=== PATIENT | female | born 1930 | race Caucasian/White ===

== ENCOUNTER → 2016-12-27 | Outpatient (CLI) | payer MEDICARE, OTHER ==
--- NOTE | 2016-12-28 10:08 | RADIOLOGY REPORT (SQ) ---
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 RADIONUCLIDE AND DOSE: 9.5 mCi F18 FDG The route of agent administration: Intravenous FASTING BLOOD SUGAR: 95 mg/dl CONTRAST TYPE AND DOSE: No CT contrast given. TECHNIQUE: Blood glucose level was verified. Above dose of FDG was injected intravenously. 2-D seg mented attenuation correction images were obtained from the base of the skull to the midthighs. Nonc ontrast CT images were obtained for attenuation correction and fusion with emission images. CT image s were performed without oral or intravenous contrast and are not sensitive for parenchymal lesions. A series of overlapping emission PET images were obtained. Images reviewed and manipulated at indep [employer] work station by the radiologist. Images stored on PACS. LIMITATIONS: None. FINDINGS: HEAD AND NECK: Left submandibular mass measuring about 6 cm in maximum diameter and mean S UV 6.3. Increased uptake 8.5 mean SUV associated with a fracture of the body of the left mandible. CHEST: No areas of abnormal metabolic activity in the chest. ABDOMEN AND PELVIS: No areas of abnormal metabolic activity in the abdomen or pelvis. Expected physi ologic activity is present in the genitourinary system and bowel. PROXIMAL LOWER EXTREMITIES: No areas of abnormal metabolic activity in the soft tissues of the lower extremities. BONES: See above. ADDITIONAL CT FINDINGS: Cardiomegaly. 10 mm non hypermetabolic pulmonary nodule right lower lobe. OTHER: No other significant findings. IMPRESSION: Hypermetabolic left submandibular mass. Increased uptake associated with a fracture of the body of the left mandible. No evidence of distant metastasis. TECHNICAL DOCUMENTATION: JOB ID: [id number]- All Rights Reserved
== END ==
LOC: RAD 15:51
PROVIDERS: ATTEND Internal Medicine Hematology & Oncology
DX: C06.9 Malignant neoplasm of mouth, unspecified (principal)
CPT/HCPCS: 78815; A9552

== ENCOUNTER → 2017-03-10 | Outpatient (CLI) | payer MEDICARE, OTHER ==
[2017-03-10 11:31] LABS: ABSOLUTE BASOPHILS # (AUTO) 0.1 10^3/uL (0.0-0.2); ABSOLUTE MONOCYTES (AUTO) 0.7 10^3/uL (0.1-1.4); ABSOLUTE NEUT (AUTO) 8.6 10^3/uL (1.7-8.2); BASOPHILS % (AUTO) 0.5 % (0-2); EOSINOPHILS % (AUTO) 0.2 % (0-6); HEMATOCRIT 38.7 % (36.0-47.0); HEMOGLOBIN 12.5 g/dL (12.0-15.5); LYMPHOCYTES % (AUTO) 9.9 % (13-45); MEAN CORPUSCULAR HEMOGLOBIN 27.3 pg (27.0-33.4); MEAN CORPUSCULAR HGB CONC 32.5 g/dL (32.0-36.0); MEAN CORPUSCULAR VOLUME 84 fl (80-97); MONOCYTES % (AUTO) 6.7 % (3-13); PLATELET COUNT 413 10^3/uL (150-450); RED BLOOD COUNT 4.59 10^6/uL (3.72-5.28); RED CELL DISTRIBUTION WIDTH 15.2 % (11.5-14.0); SEGMENTED NEUTROPHILS % (AUTO) 82.7 % (42-78); TOTAL CELLS COUNTED % (AUTO) 100 %; WHITE BLOOD COUNT 10.4 10^3/uL (4.0-10.5)
== END ==
LOC: OD 10:52
PROVIDERS: ATTEND Radiology Radiation Oncology
DX: C06.0 Malignant neoplasm of cheek mucosa (principal); C77.0 Secondary and unspecified malignant neoplasm of lymph nodes of head, face and neck
CPT/HCPCS: 36415; 85025

== ENCOUNTER 2017-03-17 09:09 | Day surgery (SDC) | payer MEDICARE, OTHER ==
[2017-03-12 09:10] LABS: HEMATOCRIT 40.9 % (36.0-47.0); HEMOGLOBIN 13.3 g/dL (12.0-15.5); MEAN CORPUSCULAR HEMOGLOBIN 27.4 pg (27.0-33.4); MEAN CORPUSCULAR HGB CONC 32.5 g/dL (32.0-36.0); MEAN CORPUSCULAR VOLUME 84 fl (80-97); PLATELET COUNT 414 10^3/uL (150-450); RED BLOOD COUNT 4.85 10^6/uL (3.72-5.28); RED CELL DISTRIBUTION WIDTH 15.2 % (11.5-14.0); WHITE BLOOD COUNT 10.8 10^3/uL (4.0-10.5)
--- NOTE | 2017-03-12 12:46 | EKG REPORT ---
SEVERITY:- ABNORMAL ECG - ATRIAL FIBRILLATION, V-RATE 53-65 VENTRICULAR PREMATURE COMPLEX REPOL ABNRM SUGGESTS ISCHEMIA, ANT-LAT LEADS : Confirmed by: Indigo Pulliam MD 12-Mar-2017 12:45:50
[~2017-03-17 09:09] MED LIST: ACETAMINOPHEN 325 MG TABLET PO PRN; CEFAZOLIN 1 GM/D5W RTU 1 GM/50 ML RTUPB IV PRN; LACTATED RINGERS 1000 ML IV PRN; LIDOCAINE 0.5% INJ-PF (5 MG/ML) 50 ML SDV SUBCUT PRN
[2017-03-17 09:52] LABS: INTERNATIONAL RATION (INR) 1.08; PROTHROMBIN TIME 14.8 SEC (11.4-15.4)
[2017-03-17 09:53] LABS: PARTIAL THROMBOPLASTIN TIME 30.6 SEC (23.5-35.8)
[2017-03-17 10:55] LABS: HEMATOCRIT 39.1 % (36.0-47.0); HEMOGLOBIN 12.7 g/dL (12.0-15.5); MEAN CORPUSCULAR HEMOGLOBIN 27.4 pg (27.0-33.4); MEAN CORPUSCULAR HGB CONC 32.5 g/dL (32.0-36.0); MEAN CORPUSCULAR VOLUME 84 fl (80-97); PLATELET COUNT 319 10^3/uL (150-450); RED BLOOD COUNT 4.64 10^6/uL (3.72-5.28); RED CELL DISTRIBUTION WIDTH 15.5 % (11.5-14.0); WHITE BLOOD COUNT 10.1 10^3/uL (4.0-10.5)
[2017-03-17] MEDS ORDERED: PROPOFOL INJ 200 MG/20 ML VIAL IV ONE (10:58)
[2017-03-17] MEDS ORDERED: MIDAZOLAM 2 MG/2 ML INJ ONE (10:59)
[2017-03-17] MEDS ORDERED: MEPERIDINE HCL/PF INJ 25 MG/1 ML DISP.SYRIN IV PRN (11:10)
[2017-03-17] MEDS ORDERED: PROMETHAZINE HCL INJ 25 MG/1 ML VIAL IV PRN ×2 (11:10)
[2017-03-17] MEDS ORDERED: MORPHINE SULFATE 10 MG/ML INJ IV PRN (11:10)
[2017-03-17] MEDS ORDERED: OXYCODONE-ACETAMINOPHEN 5-325 MG TABLET PO PRN ×2 (11:10)
[2017-03-17] MEDS ORDERED: FENTANYL CITRATE INJ/PF 100 MCG/2 ML AMPUL IV PRN ×3 (11:10)
[2017-03-17] MEDS ORDERED: DIPHENHYDRAMINE HCL 50 MG/ML VIAL IV PRN (11:10)
--- NOTE | 2017-03-17 11:36 | PDOC DISCHARGE SUMMARY ---
Discharge Summary (SDC) - Discharge Final Diagnosis: Mouth cancer Date of Surgery: 03/17/17 Discharge Date: 03/17/17 Condition: Stable Treatment or Instructions: Consult home health for maintenance of PEG tube. You may clean around the area but make sure it is completely dry. Follow up at [facility] in 10-14 days for evaluation. Call clinic sooner with questions or concerns. [facility]: [phone] Prescriptions: Ketorolac Tromethamine [Toradol 10 mg Tablet] 10 mg PO Q6HP PRN #15 tablet PRN Reason: Referrals: [facility] [Outside] DEBBY BROWN MD [Primary Care Provider] - Discharge Diet: Tube Feeding (Comments) Discharge Activity: Activity As Tolerated Report the Following to Your Physician Immediately: Nausea, Vomiting, Fever over 101 Degrees, Drainage-Foul Smelling
--- NOTE | 2017-03-17 11:37 | Operative Report ---
Operative Report DATE OF SURGERY: 03/17/17 PREOPERATIVE DIAGNOSIS: Base of tongue carcinoma POSTOPERATIVE DIAGNOSIS: Same; mild diffuse gastritis OPERATION: 1. Esophagogastroduodenoscopy. 2. Placement of 24 Kosovan Endovie PEG tube SURGEON: ZAIDA ROBERTS 1ST ELEMENTARY ASSISTANT PRINCIPAL: FRED BO ANESTHESIA: LMAC TISSUE REMOVED OR ALTERED: None COMPLICATIONS: none ESTIMATED BLOOD LOSS: none INTRAOPERATIVE FINDINGS: See below PROCEDURE: She was taken from the preop holding area to the main operating room where LMAC anesthesia was induced. She is placed in the semirecumbent position, partial Trendelenburg. Mouthpiece inserted and appropriate level of intra-venous anesthesia induced. Surgical plan surgical timeout were conducted. The flexible adult upper endoscope was advanced through the oropharynx, passed the base of tongue malignancy on the patient's left hypopharynx, and into the esophagus without difficulty. The scope was advanced through the esophagus through the stomach into the duodenum. The stomach was significant for diffuse mild gastritis. No gastric tumor identified. No evidence of gastric outlet obstruction identified. The scope was brought back to the pylorus with the tip in the body of the stomach. Insufflation was achieved. A suitable site for placement of the PEG was chosen left of midline, based on excellent deflection of the intra- abdominal wall, anterior stomach wall, transillumination of the scope. The skin was prepped and draped with Betadine and anesthetized 1% plain lidocaine. An incision was made with a #11 blade in the skin, and the Jelco needle with threaded into the lumen of the stomach. We removed the needle, and threaded a wire through the Jelco. The wire was snared with the endoscope, and the wire scope was brought back to the patient's oral pharynx. We then threaded over the wire a 24 Kosovan pullout tube. The wire and to bend were brought up through the anterior abdominal wall such that the bolster was setting against the anterior stomach wall. We repeated the upper endoscopy and confirmed excellent position of the PEG without bleeding. Appropriate bolsters with the appropriate degree of tension, dressings applied. Tolerated procedure well and taken to recovery in stable condition. The physician assistant professor of nursing, Ms. Wong, provided assistance during this case by: Assisting and port insertion, retracting tissue, instillation of local anesthesia and closure of skin incisions.
[2017-03-17 18:38] VITALS: BP 118/52
== END 2017-03-17 13:05 | disposition home or self-care (01) ==
LOC: OROUT 09:09
PROVIDERS: ATTEND Surgery
PROC: 0DH63UZ Insertion of Feeding Device into Stomach, Percutaneous Approach (ICD-10-PCS; principal; 2017-03-17 11:15)
DX: C06.9 Malignant neoplasm of mouth, unspecified (principal); I48.91 Unspecified atrial fibrillation; Z79.01 Long term (current) use of anticoagulants; Z79.899 Other long term (current) drug therapy; K44.9 Diaphragmatic hernia without obstruction or gangrene
CPT/HCPCS: 43246; 93005; 36415 ×2; 85027 ×2; 85610; 85730; 93010; J2250; J0690; J2704; 731

== ENCOUNTER 2018-03-24 13:00 | Outpatient (CLI) | payer MEDICARE, OTHER ==
[2018-03-24] MEDS ORDERED: NORMAL SALINE 250 ML IV PRN (13:11)
[2018-03-24] MEDS: MAGNESIUM SULFATE 1 GM/D5W 100 ML IV SCH ×2 (13:30→14:30)
[2018-03-24 13:38] VITALS: BP 109/74
== END 2018-03-24 15:37 | disposition home or self-care (01) ==
LOC: II 13:00 → 5TH 13:06 → II 15:37
PROVIDERS: ATTEND Internal Medicine Hematology & Oncology
PROC: 3E033GC Introduction of Other Therapeutic Substance into Peripheral Vein, Percutaneous Approach (ICD-10-PCS; principal; 2018-03-24)
DX: E83.42 Hypomagnesemia (principal)
CPT/HCPCS: 96367; J3475; 96365; 96366

== ENCOUNTER → 2018-06-22 | Outpatient (CLI) | payer MEDICARE, OTHER ==
--- NOTE | 2018-06-22 11:26 | RADIOLOGY REPORT (SQ) ---
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 Reconstructed coronal and sagittal MPR images reviewed. All images stored on PACS. All CT scanners at this facility use dose modulation, iterative reconstruction, and/or weight based d osing when appropriate to reduce radiation dose to as low as reasonably achievable (ALARA). [facility]: Dose Right [facility]: CareDose [facility]: Dose Right [facility]: Teradose 4D [facility]: [employer] CONTRAST TYPE AND DOSE: 80 mL of IV Omnipaque 350- low osmolar. RENAL FUNCTION: Creatinine 0.6 RADIATION DOSE: 9.2 mGy . LIMITATIONS: None. FINDINGS: A 2.3 x 2 cm mass is present in the left submandibular triangle appearance is well-circums cribed, and appears extrinsic to the left submandibular gland. This lesion was 4.7 x 4.6 cm in size on PET-CT 12/27/2016. In the left anterior lower back, a lobular mass with indistinct margins is present, measuring 4.2 cm craniocaudad by 4.3 cm transverse by 2.8 cm AP. Indistinct margins with the adjacent thyroid. This could represent primary thyroid tumor rather than recurrent floor of mouth malignancy. SKULL BASE: Post bilateral cataract surgery. Ectasia of the basilar artery, benign. MAJOR SALIVARY GLANDS: No solid or cystic masses. No inflammatory changes. LYMPHADENOPATHY: Aside from the lesions above, no bulky cervical adenopathy is present. MUCOSAL MASSES OR ASYMMETRY: No mucosal masses or asymmetry. LARYNX/CORDS: No abnormal findings. VASCULAR STRUCTURES: The major vessels are patent. LUNG APICES: Clear. BONES: Intact. THYROID: As above. PARANASAL SINUSES: Clear. OTHER: No other significant finding. IMPRESSION: Recurrent/residual floor of mouth mass 2.3 x 2 cm on the current study (was 4.7 x 4.6 cm on 12/27/2016 PET-CT) Irregular ill-defined soft tissue mass left lower neck abutting the lateral aspect left lobe thyroid. This may represent a primary thyroid tumor rather than recurrent floor of mouth tumor. This findin g measures 4.2 x 4.3 x 2.8 cm. TECHNICAL DOCUMENTATION: JOB ID: [id number] Quality ID # [id number]: Final reports with documentation of one or more dose reduction techniques (e.g., Au tomated exposure control, adjustment of the mA and/or kV according to patient size, use of iterative reconstruction technique) 2010 [employer]- All Rights Reserved Reading location - IP/workstation name: [email or web address]
--- NOTE | 2018-06-22 16:21 | RADIOLOGY REPORT (SQ) ---
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 Images reviewed with lung, soft tissue and bone windows. Reconstructed coronal and sagittal MPR and MIP images reviewed. All images stored on PACS. All CT scanners at this facility use dose modulation, iterative reconstruction, and/or weight based d osing when appropriate to reduce radiation dose to as low as reasonably achievable (ALARA). [facility]: Dose Right [facility]: CareDose [facility]: Dose Right [facility]: Teradose 4D [facility]: [employer] CONTRAST TYPE AND DOSE: contrast/concentration: Isovue 350.00 mg/ml; Total Contrast Delivered: 80.0 ml; Total Saline Delivered: 55.0 ml RENAL FUNCTION: Creatinine 0.6 RADIATION DOSE: CT Rad equipment meets quality standard of care and radiation dose reduction techniq ues were employed. CTDIvol: 6.2 - 9.2 mGy. DLP: 599 mGy-cm. . LIMITATIONS: None. FINDINGS: LUNGS AND PLEURA: Small right-sided pleural effusion. No focal airspace disease. No pneu mothorax. Minimal linear left basilar scarring. HILAR AND MEDIASTINAL STRUCTURES: Supraclavicular mass/adenopathy. Please see same-day CT of the [facility] for detailed description above the clavicles. No mediastinal, hilar or axillary adenopathy. HEART AND VASCULAR STRUCTURES: Cardiomegaly with markedly enlarged right atrium and right ventricle. Contrast reflux into the hepatic veins which can be seen with right heart dysfunction. Dilated main in bilateral pulmonary artery suggestive pulmonary artery hypertension. No significant pericardial effusion. Scattered coronary atherosclerosis. HARDWARE: None in the chest. UPPER ABDOMEN: No significant findings. Limited exam. THYROID AND OTHER SOFT TISSUES: Please see same-day neck CT for findings above the clavicles. BONES: Osteopenia. No acute findings. No suspicious osseous lesions. Dysmorphic ribs bilaterally. OTHER: No other significant finding. IMPRESSION: 1. Partially evaluated left supraclavicular / thyroid mass. Please see same-day neck C T for findings above the clavicles. 2. No other evidence of intrathoracic metastatic disease. 3. Cardiomegaly with markedly enlarged right heart and evidence of right heart dysfunction. Small r ight effusion. TECHNICAL DOCUMENTATION: JOB ID: [id number] Quality ID # [id number]: Final reports with documentation of one or more dose reduction techniques (e.g., Au tomated exposure control, adjustment of the mA and/or kV according to patient size, use of iterative reconstruction technique) 2010 [employer]- All Rights Reserved Reading location - IP/workstation name: [email or web address]
== END ==
LOC: RAD 08:27
PROVIDERS: ATTEND Internal Medicine
DX: C06.9 Malignant neoplasm of mouth, unspecified (principal)
CPT/HCPCS: 70491; 71260; 82565

== ENCOUNTER 2018-07-05 10:35 | Emergency (ER) | payer MEDICARE, OTHER ==
--- NOTE | 2018-07-05 10:57 | RADIOLOGY REPORT (SQ) ---
EXAM DESCRIPTION: CHEST SINGLE VIEW COMPLETED DATE/TIME: 07/05/2018 10:46 am REASON FOR STUDY: left-sided weakness COMPARISON: None. NUMBER OF VIEWS: One view. TECHNIQUE: Single frontal radiographic image of the chest acquired. LIMITATIONS: None. FINDINGS: LUNGS AND PLEURA: The lung godoy are hyperexpanded. No consolidations. MEDIASTINUM AND HILAR STRUCTURES: Normal in appearance. HEART AND VASCULAR STRUCTURES: Heart is enlarged. No failure. BONES: No acute findings. OTHER: No other significant finding. IMPRESSION: COPD. Cardiomegaly. No acute findings in the chest. TECHNICAL DOCUMENTATION: JOB ID: [id number] [employer]- All Rights Reserved Reading location - IP/workstation name: [email or web address]
--- NOTE | 2018-07-05 11:01 | ER Document Report ---
ED General - General Chief Complaint: S/S of Possible Stroke Stated Complaint: POSSIBLE STROKE Time Seen by Provider: 07/05/18 10:56 Primary Care Provider: GITA PAYAN MD [ACTIVE STAFF] - Follow up as needed Information source: Patient Notes: Patient is an 87-year-old female with past medical history of a neck cancerous mass followed by Dr. Payan with the hematology/oncology team who is here for radiographically guided biopsy of the left neck mass. Patient did not receive anesthesia but when she was done receiving the biopsy, she could not move her left arm. Patient denies any headache, slurred speech, difficulty speaking or understanding, weakness or numbness to any other locations. Patient and family deny any other past medical history and is supposedly on no meds other than chemotherapy medications. Patient does state that she felt acute pain to her left shoulder when the needle was inserted into the left neck mass. TRAVEL OUTSIDE OF THE [place] IN LAST 30 DAYS: No - HPI Onset: Just prior to arrival Onset/Duration: Sudden - Related Data Allergies/Adverse Reactions: No Known Allergies Allergy (Unverified 03/12/17 09:27) Past Medical History - Social History Smoking Status: Unknown if Ever Smoked Family History: Reviewed & Not Pertinent Review of Systems - Review of Systems Constitutional: denies: Fever EENT: denies: Eye discharge, Nose discharge Cardiovascular: denies: Chest pain Respiratory: denies: Short of breath Gastrointestinal: denies: Vomiting Genitourinary: denies: Dysuria Musculoskeletal: denies: Leg swelling Skin: Other - no hives. denies: Rash -: Yes All other systems reviewed and negative Physical Exam - Vital signs Vitals: Pulse Ox 100 07/05/18 11:01 Notes: Reviewed vital signs and nursing note as charted by RN. CONSTITUTIONAL: Alert and oriented and responds appropriately to questions. Well-appearing; well-nourished HEAD: Normocephalic; atraumatic EYES: PERRL; Conjunctivae clear, sclerae non-icteric ENT: Normal nose; no rhinorrhea; moist mucous membranes; pharynx without lesions noted NECK: Supple without meningismus; bandage to the left neck; no expanding masses or bruits present; no cervical lymphadenopathy, no masses CARD: Regular rate and rhythm; no murmurs; symmetric distal pulses RESP: Normal chest excursion without splinting or tachypnea; breath sounds clear and equal bilaterally; no wheezes, no rhonchi, no rales ABD/GI: Normal bowel sounds; non-distended; soft, non-tender; no palpable organomegaly or masses BACK: The back appears normal and is non-tender to palpation EXT: Normal passive ROM in all joints; non-tender to palpation; no edema SKIN: No acute lesions noted NEURO: CN 2-12 intact; 3 out of 5 strength of the left upper arm. However the patient has 5 out of 5 left tool hardener strength. She is also able to flex her bicep. She is just not able to extend at the shoulder region. 5 out of 5 strength of all of the extremities. Strong distal pulses to all 4 extremities PSYCH: The patient's mood and manner are appropriate. Grooming and personal hygiene are appropriate. Course - Re-evaluation Re-evalutation: 07/05/18 10:50 Given the above history and physical examination, code stroke was activated. Patient was taken directly to the CT scanner. Radiologist called me back and states he sees no acute process. NIH score is a 3. Patient has isolated left arm weakness only at the shoulder joint. 07/05/18 11:01 Patient had stated no past medical history. It appears that the patient is on metoprolol as well as Eliquis. EKG shows a heart of 84, atrial fibrillation, no obvious ST elevation. Slight ST depressions with inverted T waves in leads V5 and V6 07/05/18 11:02 We have found the patient's old EKG from March 12, 2017. It appears that the patient had atrial fibrillation at that time as well. Given the history, physical, acute pain to the left shoulder with insertion of the needle into the left neck, with no other focal deficits, already on Eliquis, I do not believe the patient is a TPA candidate. 07/05/18 11:12 I have spoken to the radiologist. He states that the patient had to be in an awkward position for greater than 15 minutes with her head completely rotated to the right. He agrees that this does not sound extremely strokelike. I will obtain an MRI of the brain. 07/05/18 11:42 Patient now has absolutely no weakness or pain to the left shoulder or arm. Patient is wanting to go home without the MRI. I have explained to the patient as well as the family in the room that I cannot completely rule out a stroke to the brain without performing the MRI. Chest x-ray shows normal heart, normal mediastinum, no fractures, normal lung godoy, no pneumothorax. 07/05/18 13:32 Patient has accepted having the MRI performed. Labs as recorded. Patient is currently in MRI. 07/05/18 14:53 MRI as recorded. Patient still has no focal neurological deficits. 5 out of 5 strength of the left arm. Patient will be discharged home with strict return precautions and follow-up with her oncologist. - Vital Signs Vital signs: Temp Pulse Resp BP Pulse Ox 100 07/05/18 11:01 - Laboratory Result Diagrams: 07/05/18 10:57 07/05/18 10:57 Laboratory results interpreted by me: 07/05/18 07/05/18 10:57 10:57 Hgb 11.0 L Hct 34.8 L MCV 79 L MCH 24.8 L MCHC 31.6 L RDW 17.1 H Carbon Dioxide 20 L Calcium 10.4 H Discharge - Discharge Clinical Impression: Left arm weakness Condition: Good Disposition: HOME, SELF-CARE Additional Instructions: Come back immediately for any repeat weakness, vomiting, fevers, headache or neck pain, neck swelling, or any other acute problems. Please follow-up with the lockstitch back maker/oncologist as we have discussed. Referrals: GITA PAYAN MD [ACTIVE STAFF] - Follow up as needed
--- NOTE | 2018-07-05 11:03 | RADIOLOGY REPORT (SQ) ---
EXAM DESCRIPTION: CT HEAD WITHOUT COMPLETED DATE/TIME: 07/05/2018 10:48 am REASON FOR STUDY: left-sided weakness COMPARISON: None. TECHNIQUE: Axial images acquired through the brain without intravenous contrast. Images reviewed wi th bone, brain and subdural windows. Additional sagittal and coronal reconstructions were generated. Images stored on PACS. All CT scanners at this facility use dose modulation, iterative reconstruction, and/or weight based d osing when appropriate to reduce radiation dose to as low as reasonably achievable (ALARA). [facility]: Dose Right [facility]: CareDose [facility]: Dose Right [facility]: Teradose 4D [facility]: [employer] RADIATION DOSE: CT Rad equipment meets quality standard of care and radiation dose reduction techniq ues were employed. CTDIvol: 53.2 mGy. DLP: 964 mGy-cm. mGy. LIMITATIONS: None. FINDINGS: VENTRICLES: Normal size and contour. CEREBRUM: Mild cortical atrophy. No masses. No hemorrhage. No midline shift. No evidence for acut e infarction. Normal soares/white matter differentiation. No areas of low density in the white matter. CEREBELLUM: No masses. No hemorrhage. No alteration of density. No evidence for acute infarction. EXTRAAXIAL SPACES: No fluid collections. No masses. ORBITS AND GLOBE: No intra- or extraconal masses. Normal contour of globe without masses. CALVARIUM: No fracture. PARANASAL SINUSES: An air-fluid level is present in each maxillary sinus. SOFT TISSUES: No mass or hematoma. OTHER: No other significant finding. IMPRESSION: Involutional changes with no acute intracranial imaging findings. Maxillary sinus disea se. EVIDENCE OF ACUTE STROKE: NO. COMMENT: Pertinent positive or negative findings of the imaging study reported as a CRITICAL EXAM pretty MARIN MD at10:57 on 07/05/2018. Category of Critical Exam: Stroke alert. Quality ID # 436: Final reports with documentation of one or more dose reduction techniques (e.g., Au tomated exposure control, adjustment of the mA and/or kV according to patient size, use of iterative reconstruction technique) TECHNICAL DOCUMENTATION: JOB ID: [id number] [employer]- All Rights Reserved Reading location - IP/workstation name: [email or web address]
[2018-07-05 11:22] LABS: ABSOLUTE BASOPHILS # (AUTO) 0.1 10^3/uL (0.0-0.2); ABSOLUTE LYMPHOCYTES (AUTO) 0.9 10^3/uL (0.5-4.7); ABSOLUTE MONOCYTES (AUTO) 0.3 10^3/uL (0.1-1.4); ABSOLUTE NEUT (AUTO) 3.1 10^3/uL (1.7-8.2); BASOPHILS % (AUTO) 1.4 % (0-2); EOSINOPHILS % (AUTO) 0.7 % (0-6); HEMATOCRIT 34.8 % (36.0-47.0); LYMPHOCYTES % (AUTO) 20.3 % (13-45); MEAN CORPUSCULAR HEMOGLOBIN 24.8 pg (27.0-33.4); MEAN CORPUSCULAR HGB CONC 31.6 g/dL (32.0-36.0); MEAN CORPUSCULAR VOLUME 79 fl (80-97); MONOCYTES % (AUTO) 7.4 % (3-13); PLATELET COUNT 242 10^3/uL (150-450); RED BLOOD COUNT 4.42 10^6/uL (3.72-5.28); RED CELL DISTRIBUTION WIDTH 17.1 % (11.5-14.0); SEGMENTED NEUTROPHILS % (AUTO) 70.2 % (42-78); TOTAL CELLS COUNTED % (AUTO) 100 %; WHITE BLOOD COUNT 4.4 10^3/uL (4.0-10.5)
[2018-07-05 11:24] LABS: INTERNATIONAL RATION (INR) 1.02
[2018-07-05 11:25] LABS: PARTIAL THROMBOPLASTIN TIME 30.6 SEC (23.5-35.8)
[2018-07-05 11:27] LABS: PROTHROMBIN TIME 13.9 SEC (11.4-15.4)
[2018-07-05 11:58] LABS: CREATINE KINASE MB 2.47 ng/mL (<4.55)
[2018-07-05 12:20] LABS: TROPONIN I < 0.012 ng/mL
[2018-07-05 12:44] LABS: ALANINE AMINOTRANSFERASE 29 U/L (9-52); ALBUMIN 4.3 g/dL (3.5-5.0); ALKALINE PHOSPHATASE 97 U/L (38-126); ANION GAP 14 (5-19); ASPARTATE AMINO TRANSFERASE 29 U/L (14-36); BILIRUBIN,DIRECT 0.4 mg/dL (0.0-0.4); BILIRUBIN,TOTAL 0.7 mg/dL (0.2-1.3); BLOOD UREA NITROGEN 14 mg/dL (7-20); CALCIUM 10.4 mg/dL (8.4-10.2); CARBON DIOXIDE 20 mmol/L (22-30); CHLORIDE 107 mmol/L (98-107); CREATINE KINASE 36 U/L (30-135); GLUCOSE 103 mg/dL (75-110); POTASSIUM 4.6 mmol/L (3.6-5.0); SODIUM 141.2 mmol/L (137-145); TOTAL PROTEIN 7.3 g/dL (6.3-8.2)
[2018-07-05] MEDS ORDERED: LORAZEPAM INJ 2 MG/1 ML VIAL IV ONE (12:45)
--- NOTE | 2018-07-05 14:51 | RADIOLOGY REPORT (SQ) ---
EXAM DESCRIPTION: MRI HEAD WITHOUT COMPLETED DATE/TIME: 07/05/2018 2:05 pm REASON FOR STUDY: 3; left arm weakness COMPARISON: None. TECHNIQUE: Multiplanar imaging includes non-contrasted T1, T2, FLAIR, and diffusion with ADC map seq uences. Images stored on PACS. LIMITATIONS: None. FINDINGS: ANATOMY: No anomalies. Normal vascular flow voids. Pituitary fossa normal. CSF SPACES: Normal in size and contour. No hemorrhage. CEREBRUM: Mild cortical atrophy. Normal white matter signal on FLAIR imaging. No evidence of hemorrh age, mass, or extraaxial fluid collection. POSTERIOR FOSSA: No signal alteration. No hemorrhage. No edema, masses or mass effect. Internal josefina tory canals, cerebello-pontine angles, mastoids normal. DIFFUSION IMAGING: Negative for acute or sub-acute infarction. ORBITS: No masses. Globes normal. PARANASAL SINUSES: There are air-fluid levels in both maxillary sinuses. OTHER: No other significant finding. IMPRESSION: Mild involutional changes. Maxillary sinus disease. No acute intracranial imaging find ings. EVIDENCE OF ACUTE STROKE: NO. TECHNICAL DOCUMENTATION: JOB ID: [id number] [employer]- All Rights Reserved Reading location - IP/workstation name: [email or web address]
[2018-07-05 15:39] VITALS: BP 171/82
--- NOTE | 2018-07-06 10:16 | EKG REPORT ---
SEVERITY:- ABNORMAL ECG - ATRIAL FIBRILLATION, V-RATE 69-103 LVH WITH SECONDARY REPOLARIZATION ABNORMALITY ANTERIOR Q WAVES, POSSIBLY DUE TO LVH ST DEPRESSION, CONSIDER ISCHEMIA, ANT-LAT LDS : Confirmed by: Benjamin Garcia 06-Jul-2018 10:15:42
== END 2018-07-05 14:20 | disposition home or self-care (01) ==
LOC: ER 10:35
DX: R53.1 Weakness (principal); M25.512 Pain in left shoulder; R22.1 Localized swelling, mass and lump, neck
CPT/HCPCS: 93005; 99284; 96374; 36415; 82553; 82962; 82550; 85025; 85610; 85730; 80053; 84484; 70551; 71045; 70450; 93010; J2060

== ENCOUNTER → 2018-07-05 | Day surgery (SDC) | payer MEDICARE, OTHER ==
[~2018-07-05] MED LIST changes: -ACETAMINOPHEN 325 MG TABLET PO PRN; -CEFAZOLIN 1 GM/D5W RTU 1 GM/50 ML RTUPB IV PRN; -LACTATED RINGERS 1000 ML IV PRN; -LIDOCAINE 0.5% INJ-PF (5 MG/ML) 50 ML SDV SUBCUT PRN; +LIDOCAINE 1% INJ-PF (10 MG/ML) 30 ML SDV ONE
--- NOTE | 2018-07-05 12:01 | RADIOLOGY REPORT (SQ) ---
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 TECHNIQUE: The procedure was discussed with the patient and written informed consent obtained. A ti meout was performed to confirm the procedure and patient's identity. The skin of the neck was preppe d and draped in sterile fashion and 1% lidocaine administered for local anesthesia. Under sonographi c guidance, soft tissue core biopsy was performed of the mass in the left side of the neck. Four separate core biopsies were performed. Hemostasis was obtained with direct manual compression. There were no immediate complications. LIMITATIONS: None. FINDINGS: PATHOLOGY: Pending. IMPRESSION: ULTRASOUND-GUIDED BIOPSY PERFORMED OF A MASS IN THE LEFT SIDE OF THE NECK. PATHOLOGY PE NDING AT THE TIME OF DICTATION. COMMENT: Patient medication list reviewed: Yes- Quality ID# [id number]:Eligible professional attests to doc umenting in the medical record they obtained, updated, or reviewed the patient's current medications. TECHNICAL DOCUMENTATION: JOB ID: [id number] [employer]- All Rights Reserved Reading location - IP/workstation name: [email or web address]
== END ==
LOC: RAD 08:51
PROVIDERS: ATTEND Internal Medicine Hematology & Oncology
DX: E07.9 Disorder of thyroid, unspecified (principal); C06.9 Malignant neoplasm of mouth, unspecified
CPT/HCPCS: 88305 ×2; 21550; J3490

== ENCOUNTER → 2019-04-24 | Outpatient (CLI) | payer MEDICARE, OTHER ==
--- NOTE | 2019-04-25 12:43 | RADIOLOGY REPORT (SQ) ---
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 Reconstructed coronal and sagittal MPR images reviewed. All images stored on PACS. All CT scanners at this facility use dose modulation, iterative reconstruction, and/or weight based d osing when appropriate to reduce radiation dose to as low as reasonably achievable (ALARA). [facility]: Dose Right [facility]: CareDose [facility]: Dose Right [facility]: Teradose 4D [facility]: [employer] CONTRAST TYPE AND DOSE: 80 mL of IV Omnipaque 350- low osmolar. RENAL FUNCTION: Creatinine 0.5 RADIATION DOSE: 8 mGy . LIMITATIONS: None FINDINGS: No dominant mass is identified in the left retromolar trigone region on axial images 19-24 . Along the left submandibular triangle, a 2.3 x 1.7 cm nodule is present likely metastatic lymph node (was 2.3 x 1.9 cm on 06/22/2018). This is immediately ventral to the submandibular gland. Previously biopsied left infra hyoid level 3 metastatic lymph node is present, 5.3 x 3.7 cm today (wa s 1.3 x 2.8 cm 06/22/2018). Left supraclavicular 1.4 x 1 cm lymph node is unchanged. SKULL BASE: Intact. MAJOR SALIVARY GLANDS: No solid or cystic masses. No inflammatory changes. LYMPHADENOPATHY: As above MUCOSAL MASSES OR ASYMMETRY: No mucosal masses or asymmetry. LARYNX/CORDS: No abnormal findings. VASCULAR STRUCTURES: The major vessels are patent. LUNG APICES: Clear. BONES: Diffuse degenerative disc changes with moderate bilateral C5-6 foraminal narrowing THYROID: Normal size. No masses. PARANASAL SINUSES: Clear. OTHER: No other significant finding. 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 TECHNICAL DOCUMENTATION: JOB ID: [id number] Quality ID # [id number]: Final reports with documentation of one or more dose reduction techniques (e.g., Au tomated exposure control, adjustment of the mA and/or kV according to patient size, use of iterative reconstruction technique) 2010 [employer]- All Rights Reserved Reading location - IP/workstation name: [email or web address]
--- NOTE | 2019-04-26 11:01 | RADIOLOGY REPORT (SQ) ---
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 CT chest dated 06/22/2018 TECHNIQUE: CT scan of the chest performed using helical scanning technique with dynamic intravenous contrast injection. Images reviewed with lung, soft tissue and bone windows. Reconstructed coronal and sagittal MPR and MIP images reviewed. All images stored on PACS. All CT scanners at this facility use dose modulation, iterative reconstruction, and/or weight based d osing when appropriate to reduce radiation dose to as low as reasonably achievable (ALARA). [facility]: Dose Right [facility]: CareDose [facility]: Dose Right [facility]: Teradose 4D [facility]: [employer] CONTRAST TYPE AND DOSE: contrast/concentration: Isovue 350.00 mg/ml; Total Contrast Delivered: 80.0 ml; Total Saline Delivered: 55.0 ml RENAL FUNCTION: BUN 13, creatinine 0.5 RADIATION DOSE: . LIMITATIONS: None. FINDINGS: LUNGS AND PLEURA: There is an enlarging right pleural effusion. There is a focal soft tis shante mass now present in the right base anteriorly adjacent to the right heart border. This measures approximately 2.7 x 2.4 cm. This could represent consolidation. Neoplasm cannot be excluded. There is atelectasis in both lung bases. HILAR AND MEDIASTINAL STRUCTURES: No identified masses or abnormal nodes. HEART AND VASCULAR STRUCTURES: No aneurysm or dissection. No central pulmonary emboli. No pericardi al effusion. HARDWARE: Yszavh-Q-Qetw is in place. UPPER ABDOMEN: Suspect periaortic adenopathy. THYROID AND OTHER SOFT TISSUES: Large necrotic lymph nodes in the left lower neck is again noted. Pl ease refer to CT of the neck for further discussion. This measures approximately 5 cm in greatest di ameter. BONES: Slight wedging of T12. This is stable from June 2018. OTHER: No other significant finding. IMPRESSION: 1. Increasing right pleural effusion. There is a 2.7 x 2.4 cm soft tissue mass in the r ight base anteriorly. This could represent focal consolidation although neoplasm cannot be excluded. 2. Suspect periaortic adenopathy. Correlation with CT abdomen pelvis is recommended. 3. Large lower left neck necrotic lymph node as described. TECHNICAL DOCUMENTATION: JOB ID: [id number] Quality ID # 436: Final reports with documentation of one or more dose reduction techniques (e.g., Au tomated exposure control, adjustment of the mA and/or kV according to patient size, use of iterative reconstruction technique) 2010 [employer]- All Rights Reserved Reading location - IP/workstation name: [email or web address] MORE[facility] [email or web address]
== END ==
LOC: RAD 14:30
PROVIDERS: ATTEND Internal Medicine Hematology & Oncology
DX: C06.9 Malignant neoplasm of mouth, unspecified (principal); J90 Pleural effusion, not elsewhere classified; R59.0 Localized enlarged lymph nodes; M50.322 Other cervical disc degeneration at C5-C6 level
CPT/HCPCS: 70491; 71260

== ENCOUNTER → 2019-07-03 | Outpatient (CLI) | payer MEDICARE, OTHER ==
--- NOTE | 2019-07-03 14:32 | RADIOLOGY REPORT (SQ) ---
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 RADIATION DOSE: NA LIMITATIONS: none FINDINGS: LUNGS AND PLEURA: Persistent right pleural effusion with underlying mass and/or airspace d isease. Similar findings were noted on recent CT. There is hyperexpansion. No pneumothorax. Proba ble small left effusion as well. MEDIASTINUM AND HILAR STRUCTURES: No masses or contour abnormalities. HEART AND VASCULAR STRUCTURES: Heart is enlarged. No failure. BONES: No acute findings. HARDWARE: Saazin-O-Xjbm is in place. OTHER: No other significant finding. IMPRESSION: Persistent right pleural effusion with underlying mass and/or pneumonia. There is a sma ll left effusion. Based on prior CT there has been progression in disease. TECHNICAL DOCUMENTATION: JOB ID: [id number] 2010 [employer]- All Rights Reserved Reading location - IP/workstation name: [email or web address]
== END ==
LOC: RAD 14:06
PROVIDERS: ATTEND Internal Medicine Hematology & Oncology
DX: J90 Pleural effusion, not elsewhere classified (principal); C06.9 Malignant neoplasm of mouth, unspecified; R06.02 Shortness of breath; R91.8 Other nonspecific abnormal finding of lung field
CPT/HCPCS: 71046

== ENCOUNTER → 2019-07-12 | Outpatient (CLI) | payer MEDICARE, OTHER ==
--- NOTE | 2019-07-12 14:52 | RADIOLOGY REPORT (SQ) ---
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 Reconstructed coronal and sagittal MPR images reviewed. All images stored on PACS. All CT scanners at this facility use dose modulation, iterative reconstruction, and/or weight based d osing when appropriate to reduce radiation dose to as low as reasonably achievable (ALARA). [facility]: Dose Right [facility]: CareDose [facility]: Dose Right [facility]: Teradose 4D [facility]: [employer] CONTRAST TYPE AND DOSE: 80 mL of IV Omnipaque 350- low osmolar. RENAL FUNCTION: Creatinine 0.7 RADIATION DOSE: 9.3 mGy . LIMITATIONS: None. FINDINGS: SKULL BASE: Inferior brain parenchyma in the field of view unremarkable. MAJOR SALIVARY GLANDS: Post resection left submandibular gland. Along the left submandibular triangl e, a persistent hyperdense mass is present just deep to the skin surface, 2.3 x 1.6 cm in size, stabl e compared to both prior CT exams. LYMPHADENOPATHY: Cystic/solid left supraclavicular mass is present abutting the lateral aspect of the left lobe thyroid. This contains hyperdense material, and appears to have morphology of a cyst and mural nodule, possibly a primary thyroid mass. This currently measures 6.4 cm AP x 3.7 cm transverse by 5.5 cm craniocaudad (was 5 x 3.7 x 5.2 cm on 04/24/2019, 4.3 x 2.7 x 4.2 cm 06/22/2018). MUCOSAL MASSES OR ASYMMETRY: No mucosal masses or asymmetry. LARYNX/CORDS: No abnormal findings. VASCULAR STRUCTURES: The major vessels are patent. Calcified carotid bifurcations with less than 50% bilateral proximal ICA stenosis LUNG APICES: There is dense consolidation in the bilateral upper lobes, and a small right pleural eff usion BONES: Diffuse degenerative disc changes cervical spine THYROID: Right lobe thyroid unremarkable. PARANASAL SINUSES: Clear. OTHER: No other significant finding. IMPRESSION: Left supraclavicular region mass increasing in size compared to previous studies. This finding is worrisome for an enlarging thyroid mass. Stable hyperdense well-circumscribed mass in the left submandibular triangle Extensive bilateral upper lobe airspace disease with right pleural effusion. Aspiration pneumonia sh ould be considered. TECHNICAL DOCUMENTATION: JOB ID: [id number] Quality ID # 436: Final reports with documentation of one or more dose reduction techniques (e.g., Au tomated exposure control, adjustment of the mA and/or kV according to patient size, use of iterative reconstruction technique) 2010 [employer]- All Rights Reserved Reading location - IP/workstation name: [email or web address]
--- NOTE | 2019-07-12 16:07 | RADIOLOGY REPORT (SQ) ---
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 TECHNIQUE: CT scan of the chest performed using helical scanning technique with dynamic intravenous contrast injection. Images reviewed with lung, soft tissue and bone windows. Reconstructed coronal and sagittal MPR and MIP images reviewed. All images stored on PACS. All CT scanners at this facility use dose modulation, iterative reconstruction, and/or weight based d osing when appropriate to reduce radiation dose to as low as reasonably achievable (ALARA). [facility]: Dose Right [facility]: CareDose [facility]: Dose Right [facility]: Teradose 4D [facility]: [employer] CONTRAST TYPE AND DOSE: Contrast/concentration: Isovue 350.00 mg/ml; Total Contrast Delivered: 80.0 ml; Total Saline Delivered: 56.0 ml RENAL FUNCTION: Creatinine 0.7 milligrams/deciliter. RADIATION DOSE: CT Rad equipment meets quality standard of care and radiation dose reduction techniq ues were employed. CTDIvol: 6.4 - 9.3 mGy. DLP: 522 mGy-cm. LIMITATIONS: None. FINDINGS: LUNGS AND PLEURA: The trachea main bronchi are patent. Compared to the CT from 04/24/2019, the amount of fluid in the right pleural space has increased and the patient has developed a left ple ural effusion and multilobar multifocal alveolar opacities/areas of consolidation. HILAR AND MEDIASTINAL STRUCTURES: Stable borderline enlarged left lower paratracheal lymph nodes that measure 10 mm in short axis diameter. HEART AND VASCULAR STRUCTURES: Standard 3 vessel arch. There is no thoracic aortic dissection or ane urysm. There is severe cardiomegaly with reflux of contrast into the IVC and hepatic veins. HARDWARE: The tip of the right IJ port terminates within the SVC. UPPER ABDOMEN: No abnormality. THYROID AND OTHER SOFT TISSUES: Mixed solid and cystic mass in the left supraclavicular fossa lateral to the thyroid gland and common carotid artery that measures 5.6 x 3.6 cm. BONES: Chronic compression deformity of the superior endplate of the L1 vertebral body. OTHER: Mild atherosclerotic calcification of the coronary arteries. IMPRESSION: 1. New multilobar multifocal alveolar opacities/areas of consolidation that could repre sent a pneumonia. 2. Enlarging right pleural effusion and new left pleural effusion. 3. Unchanged cardiomegaly and reflux of contrast into the IVC and hepatic veins. TECHNICAL DOCUMENTATION: JOB ID: [id number] Quality ID # 436: Final reports with documentation of one or more dose reduction techniques (e.g., Au tomated exposure control, adjustment of the mA and/or kV according to patient size, use of iterative reconstruction technique) 2010 [employer]- All Rights Reserved Reading location - IP/workstation name: [email or web address]
== END ==
LOC: RAD 08:47
PROVIDERS: ATTEND Internal Medicine Hematology & Oncology
DX: C06.9 Malignant neoplasm of mouth, unspecified (principal); J90 Pleural effusion, not elsewhere classified; I51.7 Cardiomegaly
CPT/HCPCS: 70491; 71260; 82565

== ENCOUNTER 2019-07-20 08:11 | Day surgery (SDC) | payer MEDICARE, OTHER ==
[2019-07-20 09:23] LABS: HEMATOCRIT 41.2 % (36.0-47.0); HEMOGLOBIN 13.9 g/dL (12.0-15.5); MEAN CORPUSCULAR HEMOGLOBIN 30.5 pg (27.0-33.4); MEAN CORPUSCULAR HGB CONC 33.6 g/dL (32.0-36.0); MEAN CORPUSCULAR VOLUME 91 fl (80-97); PLATELET COUNT 269 10^3/uL (150-450); RED BLOOD COUNT 4.54 10^6/uL (3.72-5.28); RED CELL DISTRIBUTION WIDTH 14.8 % (11.5-14.0); WHITE BLOOD COUNT 8.2 10^3/uL (4.0-10.5)
[2019-07-20 09:30] LABS: PARTIAL THROMBOPLASTIN TIME 28.6 SEC (23.5-35.8); PROTHROMBIN TIME 14.3 SEC (11.4-15.4)
[2019-07-20 09:39] LABS: BLOOD UREA NITROGEN 19 mg/dL (7-20)
--- NOTE | 2019-07-20 12:16 | RADIOLOGY REPORT (SQ) ---
EXAM DESCRIPTION: CHEST SINGLE VIEW IMAGES COMPLETED DATE/TIME: 07/20/2019 10:59 am REASON FOR STUDY: post thoracentesis COMPARISON: 07/03/2019 EXAM PARAMETERS: NUMBER OF VIEWS: One view. TECHNIQUE: Single frontal radiographic view of the chest acquired. RADIATION DOSE: NA LIMITATIONS: None. FINDINGS: LUNGS AND PLEURA: No pneumothorax. Cannot exclude a 2.5 to 3 cm apical mass or masslike o pacification on the right. Scarring in the right base. MEDIASTINUM AND HILAR STRUCTURES: No masses. Contour normal. HEART AND VASCULAR STRUCTURES: Cardiomegaly. No darlene pulmonary edema. BONES: No acute findings. HARDWARE: None in the chest. OTHER: No other significant finding. IMPRESSION: No pneumothorax. Cardiomegaly without pulmonary edema. Masslike opacification in the r ight apex, or possible pneumonia. TECHNICAL DOCUMENTATION: JOB ID: [id number] 2010 [employer]- All Rights Reserved Reading location - IP/workstation name: [email or web address]
--- NOTE | 2019-07-20 13:09 | RADIOLOGY REPORT (SQ) ---
EXAM DESCRIPTION: CHEST SINGLE VIEW IMAGES COMPLETED DATE/TIME: 07/20/2019 12:58 pm REASON FOR STUDY: 2 hour post COMPARISON: Earlier the same day. NUMBER OF VIEWS: One view. TECHNIQUE: Single frontal radiographic image of the chest acquired. LIMITATIONS: None. FINDINGS: LUNGS AND PLEURA: Stable appearance. No pneumothorax. MEDIASTINUM AND HEART: Stable heart size and mediastinal structures. SUPPORT DEVICES: Appropriate location without change. BONY STRUCTURES: No acute findings. HARDWARE: None. OTHER: No other significant finding. IMPRESSION: No pneumothorax status post right thoracentesis. Reading location - IP/workstation name: [email or web address]
--- NOTE | 2019-07-20 13:11 | RADIOLOGY REPORT (SQ) ---
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 LIMITATIONS: None. PROCEDURE: Procedure, risks, benefit, and alternative explained to patient who then gave written con sent. The posterior right chest wall was marked using ultrasound guidance. A time-out was called fo r correct marking verification. Chest prepped and draped using sterile technique. Local anesthesia a chieved using 3 ml of 1% lidocaine injection. A 6fr Safe-T- Centesis set was introduced into the rig ht pleural space. Fluid was aspirated. The catheter was removed and the entry site was covered with sterile bandage. No immediate complications noted. Images acquired during the procedure were stored on PACS. FINDINGS: ENTRY SITE: posterior right chest. FLUID VOLUME: 750 cc FLUID ANALYSIS: Dark straw-colored. OTHER: Fluid sent to the lab for testing. IMPRESSION: SUCCESSFUL THORACENTESIS USING ULTRASOUND GUIDANCE. COMMENT: Patient medication list reviewed: Yes- Quality ID# [id number]:Eligible professional attests to doc umenting in the medical record they obtained, updated, or reviewed the patient's current medications. TECHNICAL DOCUMENTATION: JOB ID: [id number] 2010 [employer]- All Rights Reserved Reading location - IP/workstation name: [email or web address]
[2019-07-20 13:43] VITALS: BP 164/80
== END 2019-07-20 13:10 | disposition home or self-care (01) ==
LOC: RAD 08:11
PROVIDERS: ATTEND Internal Medicine Hematology & Oncology
DX: C06.9 Malignant neoplasm of mouth, unspecified (principal); Z79.01 Long term (current) use of anticoagulants; I48.91 Unspecified atrial fibrillation; Z79.899 Other long term (current) drug therapy; Z85.828 Personal history of other malignant neoplasm of skin
CPT/HCPCS: 32555; 36415; 71045; 82565; 84520; 85027; 85610; 85730; 88305; 88341; 88342